=== PATIENT | female | born 1965 | race Caucasian/White ===

== ENCOUNTER 2023-09-09 14:27 | Emergency (ER) | payer OTHER, SELFPAY ==
[2023-09-09] VITALS (19 sets, daily range): BP systolic 96–212; BP diastolic 51–99; PULSE 44–77; RESP 14–24; TEMP 36.5; O2SAT 97–100; BMI 33.4
--- NOTE | 2023-09-09 14:36 | DI.RAD.S_ITS ---
PROCEDURE: XR CHEST 1V INDICATIONS: chest pain TECHNIQUE: One view of the chest was acquired. COMPARISON: None. FINDINGS: Surgical changes and devices: None. Lungs and pleura: Lungs are clear. No pleural effusions or pneumothorax. Mediastinum: Mediastinal contours appear normal. Heart size is normal. Bones and chest wall: No suspicious bony lesions. Overlying soft tissues appear unremarkable. IMPRESSION: No acute cardiopulmonary abnormality is seen. Dictated by: Misty Dennis M.D. on 09/09/2023 at 15:18 Approved by: Misty Dennis M.D. on 09/09/2023 at 15:19
--- NOTE | 2023-09-09 14:38 | ED_ITS ---
HPI - Chest Pain General Chief Complaint: Chest Pain Stated Complaint: V/N/D/ pain Lback/ center chest on fire T-1 Time Seen by Provider: 09/09/23 14:37 Source: patient Mode of arrival: Ambulatory Limitations: no limitations History of Present Illness HPI narrative: 58-year-old female with PMH HTN presents for midepigastric abdominal/lower chest pain with nausea and vomiting. Ate what seemed to be a very rare hamburger earlier today prior to symptom onset. Also reporting lower lumbar back pain at the top of her buttocks. Symptoms ongoing for 1 day. No medications taken prior to arrival. Related Data Previous Rx's Medication Instructions Recorded dicyclomine 20 mg tablet 20 mg PO TID PRN abdominal pain 09/09/23 #30 tabs naproxen 375 mg tablet 375 mg PO BID PRN pain #30 tabs 09/09/23 ondansetron 4 mg disintegrating 4 mg PO Q8H PRN nausea and 09/09/23 tablet vomiting #30 tabs Allergies Allergy/AdvReac Type Severity Reaction Status Date / Time Azithromycin Allergy Unknown Uncoded 10/03/17 11:52 Review of Systems Review of Systems Narrative: Negative except as noted above Patient History Social History Smoking Status: Never smoker Smoking Status: Never smoker Substance Use Type: does not use Exam Initial Vital Signs Initial Vital Signs: Vital Signs Temperature 97.7 F 09/09/23 14:29 Pulse Rate 50 L 09/09/23 14:29 Respiratory Rate 16 09/09/23 14:29 Blood Pressure 212/99 H 09/09/23 14:29 Pulse Oximetry 98 09/09/23 14:29 Oxygen Delivery Method Room Air 09/09/23 14:29 Const: Awake, alert, no acute distress, nontoxic appearing Cardiac: regular rate, regular rhythm RESP: unlabored, clear bilaterally, no wheezing GI: Soft, midepigastric tenderness to deep palpation MSK back: Bilateral lower lumbar tenderness to palpation over buttocks and lower hips, no midline tenderness Skin: Warm, Dry, intact, no rashes Neuro: AO x3, CN II-XII grossly intact, moves all extremities Course Orders Ordered: Discontinued Medications Al Hydrox/Mg Hydrox/Simethicone (Mag Hydrox/Alum/Simeth 30 Ml Udc) 30 ml PO NOW ONE Stop: 09/09/23 14:54 Last Admin: 09/09/23 15:10 Dose: 30 ml Documented By: ALEX Aspirin (Aspirin 81 Mg Chew Tab) 324 mg PO NOW ONE Stop: 09/09/23 14:37 Last Admin: 09/09/23 15:07 Dose: 324 mg Documented By: ALEX Hydralazine HCl (Hydralazine 20 Mg/Ml Vial) 20 mg IV NOW ONE Stop: 09/09/23 14:40 Last Admin: 09/09/23 15:13 Dose: 20 mg Documented By: ALEX Sodium Chloride (Normal Saline 0.9%) 1,000 mls @ 1,000 mls/hr IV BOLUS ONE Stop: 09/09/23 15:44 Last Infusion: 09/09/23 16:44 Dose: Infused Documented By: Admin: 09/09/23 15:11 Dose: 1,000 mls/hr Documented By: ALEX Acetaminophen (Ofirmev) 1,000 mg in 100 mls @ 400 mls/hr IV NOW ONE Stop: 09/09/23 16:49 Last Infusion: 09/09/23 17:34 Dose: Infused Documented By: Admin: 09/09/23 16:46 Dose: 400 mls/hr Documented By: ALEX Ketorolac Tromethamine (Ketorolac 30 Mg/Ml Vial) 15 mg IV NOW ONE Stop: 09/09/23 16:36 Last Admin: 09/09/23 16:45 Dose: 15 mg Documented By: ALEX Lidocaine HCl (Lidocaine Viscous 2% 15 Ml Solution) 15 ml PO NOW ONE Stop: 09/09/23 14:54 Last Admin: 09/09/23 15:10 Dose: 15 ml Documented By: ALEX Ondansetron HCl (Ondansetron 4 Mg/2 Ml Inj) 4 mg IV NOW ONE Stop: 09/09/23 14:46 Last Admin: 09/09/23 15:11 Dose: 4 mg Documented By: ALEX Vital Signs Vital signs: Vital Signs - 8 hr 09/09/23 14:29 09/09/23 14:51 09/09/23 14:58 Temperature 97.7 F Pulse Rate 50 L 49 L Respiratory Rate 16 15 Blood Pressure 212/99 H 190/79 H Pulse Oximetry 98 100 Oxygen Delivery Method Room Air Room Air 09/09/23 14:58 09/09/23 15:00 09/09/23 15:01 Temperature Pulse Rate 44 L 44 L Respiratory Rate 24 17 Blood Pressure 197/87 H Pulse Oximetry 99 99 Oxygen Delivery Method Room Air Room Air 09/09/23 15:01 09/09/23 15:13 09/09/23 15:30 Temperature Pulse Rate 47 L 66 62 Respiratory Rate 14 23 Blood Pressure 197/87 H Pulse Oximetry 99 100 Oxygen Delivery Method Room Air 09/09/23 15:33 09/09/23 15:33 09/09/23 15:47 Temperature Pulse Rate 74 Respiratory Rate 18 Blood Pressure 96/51 L 171/79 H Pulse Oximetry 99 Oxygen Delivery Method Room Air 09/09/23 15:47 09/09/23 16:00 09/09/23 16:00 Temperature Pulse Rate 77 72 Respiratory Rate 22 20 Blood Pressure 172/80 H Pulse Oximetry 100 99 Oxygen Delivery Method Room Air Room Air 09/09/23 16:07 09/09/23 16:20 09/09/23 16:20 Temperature Pulse Rate 75 65 Respiratory Rate 16 Blood Pressure 172/80 H 193/84 H Pulse Oximetry 100 Oxygen Delivery Method Room Air 09/09/23 16:30 09/09/23 16:41 09/09/23 16:41 Temperature Pulse Rate 62 71 Respiratory Rate 19 15 Blood Pressure 209/83 H Pulse Oximetry 99 99 Oxygen Delivery Method Room Air 09/09/23 17:00 09/09/23 17:01 09/09/23 17:01 Temperature Pulse Rate 58 L 55 L Respiratory Rate 21 20 Blood Pressure 172/79 H Pulse Oximetry 97 97 Oxygen Delivery Method Room Air Room Air 09/09/23 17:20 09/09/23 17:20 Temperature Pulse Rate 68 Respiratory Rate 14 Blood Pressure 186/86 H Pulse Oximetry 98 Oxygen Delivery Method MDM - Chest Pain Differential Diagnosis Differential diagnosis: Likely fracture of rib, pneumothorax and stable angina Lab Data 09/09/23 14:50 09/09/23 14:50 Labs: Lab Results 09/09/23 Range/Units 14:50 WBC 11.5 H (4.5-11.0) X10^3/uL RBC 5.12 (4.0-5.2) X10^6/uL Hgb 15.5 (12.0-16.0) g/dL Hct 46.8 H (36-46) % MCV 91.3 (80-100) fL MCH 30.2 (26-34) PG MCHC 33.1 (30-36) % RDW 13.6 (11.6-14.8) % Plt Count 268 (150-400) X10^3/uL Neut % (Auto) 90.4 H (50-75) % Lymph % (Auto) 6.9 L (25-40) % [place] % (Auto) 2.1 L (3-14) % Eos % (Auto) 0.1 L (2-4) % Baso % (Auto) 0.5 (0-2) % Neut # (Auto) 56747 H (6592-9345) /uL Lymph # (Auto) 800 L (1673-7255) /uL [place] # (Auto) 200 (0-900) /uL Eos # (Auto) 0 (0-450) /uL Baso # (Auto) 100 (0-100) /uL PT 10.4 (9.4-12.5) SECONDS INR 0.9 (0.9-1.3) APTT 36 (25.1-36.5) SECONDS Sodium 140 (137-145) mmol/L Potassium 3.8 (3.4-5.1) mmol/L Chloride 113 H (98-107) mmol/L Carbon Dioxide 18 L (22-32) mmol/L BUN 16 (7-17) mg/dL Creatinine 1.20 H (0.52-1.04) mg/dL Estimated GFR 52 L (>60) mL/min BUN/Creatinine Ratio 13.3 (6-22) Glucose 163 H (70-100) mg/dL Calcium 9.3 (8.4-10.2) mg/dL Magnesium 2.0 (1.6-2.3) mg/dL Total Bilirubin 0.6 (0.2-1.3) mg/dL AST 23 (14-36) IU/L ALT 22 (<35) IU/L Alkaline Phosphatase 72 (38-126) U/L Total Creatine Kinase 53 (30-135) U/L Troponin I < 0.012 (0.01-0.034) ng/mL Total Protein 7.9 (6.3-8.2) g/dL Albumin 4.6 (3.5-5.0) g/dL Globulin 3.3 (1.7-4.1) g/dL Albumin/Globulin Ratio 1.4 (1.0-2.8) Lipase 116 (23-300) U/L MDM Narrative Medical decision making narrative: Well-appearing patient presenting with midepigastric pain with nausea and vomiting. Triage report states chest pain, patient reports to the upper abdomen at the base of the sternum as where her pain is the worst. Reporting associated lumbar back pain, however it is located lower lumbar and near the hips/buttocks. No midline tenderness. Laboratory work reviewed, trace leukocytosis, WBC count 11.5, which is expected given that patient has had nausea and vomiting. Creatinine 1.2 GFR 52, no previous for comparison. Troponin undetectable. Chest x-ray unremarkable. Pain and nausea symptoms controlled with Zofran and Toradol, subsequently able to tolerate p.o.. Patient advised to follow up with her primary care physician. ED return precautions discussed at bedside. Patient expressed understanding of the plan and is in agreement at this time. All questions answered at the time of discharge. Discharge Plan Departure Patient Disposition: Home Clinical Impression: Vomiting, Midepigastric pain, Lumbar back pain Instructions: DI for Low Back Pain, DI for Vomiting -- Adult Activity Restrictions/Additional Instructions: Take the prescribed medications as needed for pain and nausea. Please follow up with the primary care physician. Prescriptions: New ondansetron 4 mg tablet,disintegrating 4 mg PO Q8H PRN (Reason: nausea and vomiting) Qty: 30 0RF naproxen 375 mg tablet 375 mg PO BID PRN (Reason: pain) Qty: 30 0RF dicyclomine 20 mg tablet 20 mg PO TID PRN (Reason: abdominal pain) Qty: 30 0RF Referrals: Miscellaneous,Doctor, MD [Primary Care Provider] - Stand Alone Forms: Patient Portal/API, Work Release Note
[2023-09-09 15:00] LABS: Add Manual Diff / Slide Review NO; Basophils Absolute Auto 100 /uL (0-100); Basophils Percent Auto 0.5 % (0-2); Eosinophils Absolute Auto 0 /uL (0-450); Eosinophils Percent Auto 0.1 % (2-4); Hematocrit 46.8 % (36-46); Hemoglobin 15.5 g/dL (12.0-16.0); Lymphocytes Absolute Auto 800 /uL (1100-4500); Lymphocytes Percent Auto 6.9 % (25-40); Mean Corpuscular HGB Conc 33.1 % (30-36); Mean Corpuscular Hemoglobin 30.2 PG (26-34); Mean Corpuscular Volume 91.3 fL (80-100); Monocytes Absolute Auto 200 /uL (0-900); Monocytes Percent Auto 2.1 % (3-14); Neutrophils Absolute Auto 10400 /uL (1500-7000); Neutrophils Percent Auto 90.4 % (50-75); Platelet Count 268 X10^3/uL (150-400); Red Blood Cell Count 5.12 X10^6/uL (4.0-5.2); Red Cell Distribution Width 13.6 % (11.6-14.8); White Blood Cell Count 11.5 X10^3/uL (4.5-11.0)
[2023-09-09] MEDS: ASPIRIN 81 MG CHEW TAB 324 MG PO (15:07)
[2023-09-09 15:08] LABS: INR 0.9 (0.9-1.3); Prothrombin Time 10.4 SECONDS (9.4-12.5)
[2023-09-09 15:10] LABS: PTT Partial Thromboplastin Tim 36 SECONDS (25.1-36.5)
[2023-09-09] MEDS: LIDOCAINE VISCOUS 2% 15 ML SOLUTION PO (15:10)
[2023-09-09] MEDS: MAG HYDROX/ALUM/SIMETH 30 ML UDC PO (15:10)
[2023-09-09] MEDS: SODIUM CHLORIDE 0.9% 1,000 ML 1000 ML IV (15:11)
[2023-09-09] MEDS: ONDANSETRON 4 MG/2 ML INJ IV (15:11)
[2023-09-09 15:12] LABS: Alanine Aminotransferase 22 IU/L (<35); Albumin 4.6 g/dL (3.5-5.0); Albumin Globulin Ratio 1.4 (1.0-2.8); Alkaline Phosphatase 72 U/L (38-126); Aspartate Aminotransferase 23 IU/L (14-36); BUN Creatinine Ratio 13.3 (6-22); Bilirubin Total 0.6 mg/dL (0.2-1.3); Blood Urea Nitrogen 16 mg/dL (7-17); Calcium 9.3 mg/dL (8.4-10.2); Carbon Dioxide 18 mmol/L (22-32); Chloride 113 mmol/L (98-107); Creatine Kinase 53 U/L (30-135); Estimated Glomerular Filt Rate 52 mL/min (>60); Globulin 3.3 g/dL (1.7-4.1); Glucose 163 mg/dL (70-100); HEMOLYSIS < 15 (0-50); Lipase 116 U/L (23-300); Potassium 3.8 mmol/L (3.4-5.1); Sodium 140 mmol/L (137-145); Total Protein 7.9 g/dL (6.3-8.2)
[2023-09-09] MEDS: HYDRALAZINE 20 MG/ML VIAL IV (15:13)
[2023-09-09 15:23] LABS: Troponin I < 0.012 ng/mL (0.01-0.034)
--- NOTE | 2023-09-09 15:38 | PC.NURSE ---
Patient's resting heart rate per patient and patient's spouse is in the 40's. Dr. Beto doty.
--- NOTE | 2023-09-09 16:05 | PC.NURSE ---
Patient tolerated 60ml PO intake kimmie bony.
[2023-09-09] MEDS: KETOROLAC 30 MG/ML VIAL 15 MG IV (16:45)
[2023-09-09] MEDS: ACETAMINOPHEN IV 1,000 MG/100 ML VIAL 400 MG IV (16:46)
== END 2023-09-09 18:22 | disposition home or self-care (01) ==
PROVIDERS: Emergency Provider Emergency Medicine; Family Provider Emergency Medicine
DX: R10.13 Epigastric pain (principal); M54.50 Low back pain, unspecified; R11.2 Nausea with vomiting, unspecified
CPT/HCPCS: 36415; 71045; 80053; 82550; 83690; 83735; 84484; 85025; 85610; 85730; 93005; 96361; 96365; 96375; 99284; J0136; J0360; J1885; J2405

== ENCOUNTER 2023-10-02 10:56 | Emergency (ER) | payer OTHER, SELFPAY ==
[2023-10-02] VITALS (14 sets, daily range): BP systolic 147–195; BP diastolic 65–89; PULSE 77–99; RESP 17–18; TEMP 36.9; O2SAT 97–99; BMI 30.4
--- NOTE | 2023-10-02 12:22 | DI.CT.S_ITS ---
PROCEDURE: CT ABDOMEN PELVIS W CON INDICATIONS: epigastric and L flank pain TECHNIQUE: After the administration of intravenous contrast, axial sections acquired from the lung bases to the pubic symphysis. Coronal and sagittal reformats were performed. For radiation dose reduction, the following was used: automated exposure control, adjustment of mA and/or kV according to patient size. COMPARISON: None. FINDINGS: Image quality: Diagnostic. Lower Chest: No significant findings. ABDOMEN: Liver: No solid mass. Gallbladder: No radiopaque gallstones or wall thickening. Biliary ducts: No biliary dilation. Pancreas: No ductal dilation. Spleen: Size is within normal limits. Adrenal Glands: No adrenal nodules. Kidneys and Ureters: There is significant left hydronephrosis and hydroureter. 8 mm calcification, Hounsfield units 712 is present in the proximal left ureter. Punctate nonobstructing left renal calcification is present. 4 calcifications, nonobstructing are present in the right kidney the largest measuring 4 mm. Stomach and Bowel: Normal colonic caliber, without significant wall thickening. Appendix is normal. Colonic diverticular present without inflammatory change. Peritoneum: No abnormal intraperitoneal fluid. No free air. Ventral Wall: No significant ventral hernia. Abdominal Nodes: No retroperitoneal or mesenteric adenopathy by size criteria. Vessels: Aorta and inferior vena cava are normal in size. PELVIS: Pelvic Organs: Unremarkable. Bladder: No bladder wall thickening, accounting for underdistention. Pelvic Nodes: No enlarged lymph nodes. Miscellaneous: No inguinal hernias are seen. Bones: No aggressive osseous abnormality. IMPRESSION: Prominent left hydronephrosis and proximal hydroureter secondary to 8 mm proximal obstructing left ureteral calculus. Dictated by: Misty Dennis M.D. on 10/02/2023 at 13:39 Approved by: Misty Dennis M.D. on 10/02/2023 at 13:41
[2023-10-02 12:42] LABS: Add Manual Diff / Slide Review NO; Basophils Absolute Auto 0 /uL (0-100); Basophils Percent Auto 0.7 % (0-2); Eosinophils Absolute Auto 100 /uL (0-450); Eosinophils Percent Auto 0.8 % (2-4); Hematocrit 40.7 % (36-46); Hemoglobin 13.9 g/dL (12.0-16.0); Lymphocytes Absolute Auto 1800 /uL (1100-4500); Lymphocytes Percent Auto 24.4 % (25-40); Mean Corpuscular HGB Conc 34.2 % (30-36); Mean Corpuscular Hemoglobin 31.4 PG (26-34); Mean Corpuscular Volume 91.9 fL (80-100); Monocytes Absolute Auto 700 /uL (0-900); Monocytes Percent Auto 10.1 % (3-14); Neutrophils Absolute Auto 4700 /uL (1500-7000); Platelet Count 415 X10^3/uL (150-400); Red Blood Cell Count 4.43 X10^6/uL (4.0-5.2); Red Cell Distribution Width 13.3 % (11.6-14.8); White Blood Cell Count 7.4 X10^3/uL (4.5-11.0)
[2023-10-02 12:55] LABS: INR 1.1 (0.9-1.3)
[2023-10-02 12:57] LABS: PTT Partial Thromboplastin Tim 40 SECONDS (25.1-36.5)
[2023-10-02 12:59] LABS: Alanine Aminotransferase 15 IU/L (<35); Albumin 4.4 g/dL (3.5-5.0); Albumin Globulin Ratio 1.3 (1.0-2.8); Alkaline Phosphatase 74 U/L (38-126); Aspartate Aminotransferase 18 IU/L (14-36); BUN Creatinine Ratio 10.3 (6-22); Bilirubin Total 0.7 mg/dL (0.2-1.3); Blood Urea Nitrogen 21 mg/dL (7-17); Calcium 9.9 mg/dL (8.4-10.2); Carbon Dioxide 17 mmol/L (22-32); Chloride 108 mmol/L (98-107); Estimated Glomerular Filt Rate 28 mL/min (>60); Globulin 3.5 g/dL (1.7-4.1); Glucose 108 mg/dL (70-100); HEMOLYSIS < 15 (0-50); Lipase 232 U/L (23-300); Potassium 3.6 mmol/L (3.4-5.1); Sodium 139 mmol/L (137-145); Total Protein 7.9 g/dL (6.3-8.2)
[2023-10-02 14:00] LABS: Ictotest Urine Negative (Negative)
[2023-10-02 14:12] LABS: Bacteria Urine None Seen; RBC Urine 1-5/HPF (0-5/HPF); Squamous Epithelial Cell Urine None Seen (0-5/HPF); Urine Volume 10mL (spun); WBC Urine 1-5/HPF (0-5/HPF)
[2023-10-02] MEDS: SODIUM CHLORIDE 0.9% 1,000 ML 1000 ML IV (14:16)
--- NOTE | 2023-10-02 14:44 | ED_ITS ---
HPI - Recheck/Abnormal Lab/Rx <Noreen Morales PA-C - Last Filed: 10/02/23 19:14> General Chief Complaint: Recheck/Abnormal Lab/Rx Stated Complaint: sent by pcp, requesting CT Time Seen by Provider: 10/02/23 11:40 Source: patient Mode of arrival: Ambulatory History of Present Illness HPI narrative: 58-year-old female with past medical history intracranial hypertension, optic neuritis, breast cancer in remission, hypertension, hyperlipidemia presents to the ED with 3-4 weeks of epigastric pain, left-sided flank pain, intermittent nausea, vomiting. Patient endorses chills. Patient denies fever, chest pain, shortness of breath, diarrhea, dysuria, urinary urgency, urinary frequency, lightheadedness, dizziness, syncope. Patient was seen in the ED on September 14 for epigastric pain and some lumbar pain. Patient has been taking Prilosec for GERD. Patient comes to the ED today due to continued and worsening symptoms. Patient endorses some nausea and vomiting this morning, chills, left-sided flank pain. Patient was seen at the primary care office and labs were drawn which shows a declining kidney function, which prompted them to send her to the ED today for further evaluation and scans. Patient states that she does suspects she might have kidney stones but denies any prior history of urolithiasis. Related Data Previous Rx's Medication Instructions Recorded dicyclomine 20 mg tablet 20 mg PO TID PRN abdominal pain 09/09/23 #30 tabs naproxen 375 mg tablet 375 mg PO BID PRN pain #30 tabs 09/09/23 ondansetron 4 mg disintegrating 4 mg PO Q8H PRN nausea and 09/09/23 tablet vomiting #30 tabs Allergies Allergy/AdvReac Type Severity Reaction Status Date / Time azithromycin Allergy Unknown Verified 10/02/23 20:54 Review of Systems <Noreen Morales PA-C - Last Filed: 10/02/23 19:14> Constitutional Constitutional: Reports chills, Denies fatigue, Denies fever(s), Denies frequent falls, Denies lethargy and Denies weakness Eyes Eyes: Denies change in vision, Denies eye discharge, Denies irritation and Denies loss of vision ENT Ears, Nose, Mouth, and Throat: Denies change in voice, Denies dizziness, Denies neck pain, Denies sore throat and Denies throat swelling Cardiovascular Cardiovascular: Denies chest pain, Denies irregular heart rhythm, Denies lightheadedness, Denies palpitations, Denies dyspnea, Denies dyspnea on exertion and Denies orthopnea Respiratory Respiratory: Denies cough, Denies dyspnea, Denies dyspnea on exertion and Denies wheezing Gastrointestinal Gastrointestinal: Reports abdominal pain, Denies change in bowel habits, Reports constipation, Denies diarrhea, Reports nausea and Reports vomiting Genitourinary Comments: L flank pain Musculoskeletal Musculoskeletal: Denies neck pain and Denies numbness Integumentary/Breasts Skin/Breast: Denies pruritus, Denies erythema, Denies rash and Denies wounds Neurologic Neurologic: Denies behavioral changes, Denies confusion, Denies dizziness, Denies frequent falls, Denies loss of vision, Denies numbness and Denies weakness Psychiatric Psychiatric: Denies anxiety, Denies behavioral changes, Denies confusion, Denies depression, Denies homicidal ideation and Denies suicidal ideation Endocrine Endocrine: Denies fatigue, Denies flushing and Denies palpitations Hematologic/Lymphatic Hematologic/Lymphatic: Denies easy bruising Allergic/Immunologic Allergic/Immunologic: Denies urticaria, Denies throat swelling and Denies wheezing Patient History <Noreen Morales PA-C - Last Filed: 10/02/23 19:14> Social History Smoking Status: Never smoker Smoking Status: Never smoker alcohol intake frequency: holidays/special occasions only Substance Use Type: does not use Exam <Noreen Morales PA-C - Last Filed: 10/02/23 19:14> Narrative Exam Narrative: Const General:?cooperative, healthy appearing and comfortable [facility] Head:?normal to inspection Ears:?hearing grossly normal bilaterally Nose:?external nose normal Face and sinus:?normal facial exam and sinuses nontender Mouth:?oral mucosae normal Throat:?posterior oropharynx normal Eyes General:?appearance normal, both eyes and all related structures Neck Neck:?normal visual inspection and no lymphadenopathy noted Resp Effort & Inspection:?normal respiratory effort Auscultation:?clear to auscultation bilaterally Cardio Rate:?regular rate Rhythm:?regular rhythm GI Abdomen is soft, nontender, nondistended. There is some left-sided CVA tenderness. Neuro General:?patient alert, patient awake and patient oriented x3 Initial Vital Signs Initial Vital Signs: Vital Signs Temperature 98.4 F 10/02/23 11:15 Pulse Rate 89 10/02/23 11:15 Respiratory Rate 18 10/02/23 11:15 Blood Pressure 180/85 H 10/02/23 11:15 Pulse Oximetry 99 10/02/23 11:15 Oxygen Delivery Method Room Air 10/02/23 11:15 <Ramon Francisco MD - Last Filed: 10/09/23 09:25> Initial Vital Signs Initial Vital Signs: Vital Signs Temperature 98.4 F 10/02/23 11:15 Pulse Rate 89 10/02/23 11:15 Respiratory Rate 18 10/02/23 11:15 Blood Pressure 180/85 H 10/02/23 11:15 Pulse Oximetry 99 10/02/23 11:15 Oxygen Delivery Method Room Air 10/02/23 11:15 Course <Noreen Morales PA-C - Last Filed: 10/02/23 19:14> Orders Ordered: Discontinued Medications Famotidine (Famotidine 20 Mg/2 Ml Vial) 40 mg IV NOW RADHA Last Admin: 10/02/23 19:28 Dose: 40 mg Documented By: YESSY Sodium Chloride (Normal Saline 0.9%) 1,000 mls @ 1,000 mls/hr IV BOLUS ONE Stop: 10/02/23 15:06 Last Infusion: 10/02/23 15:15 Dose: Infused Documented By: Admin: 10/02/23 14:16 Dose: 1,000 mls/hr Documented By: SONNY Ondansetron HCl (Ondansetron 4 Mg Odt) 4 mg SL NOW PRN PRN Reason: Nausea And Vomiting Ondansetron HCl (Ondansetron 4 Mg/2 Ml Inj) 4 mg IV NOW PRN PRN Reason: Nausea And Vomiting Vital Signs Vital signs: Vital Signs - 8 hr 10/02/23 11:15 10/02/23 15:54 10/02/23 15:54 Temperature 98.4 F Pulse Rate 89 99 H Respiratory Rate 18 Blood Pressure 180/85 H 195/88 H Pulse Oximetry 99 97 Oxygen Delivery Method Room Air 10/02/23 16:00 10/02/23 16:00 10/02/23 16:30 Temperature Pulse Rate 86 84 Respiratory Rate Blood Pressure 188/88 H Pulse Oximetry 99 98 Oxygen Delivery Method 10/02/23 16:30 10/02/23 17:00 10/02/23 17:00 Temperature Pulse Rate 79 Respiratory Rate Blood Pressure 169/89 H 156/71 H Pulse Oximetry 99 Oxygen Delivery Method 10/02/23 17:30 10/02/23 17:31 10/02/23 17:31 Temperature Pulse Rate 77 79 Respiratory Rate Blood Pressure 147/65 H Pulse Oximetry 99 99 Oxygen Delivery Method 10/02/23 18:00 10/02/23 18:00 10/02/23 18:30 Temperature Pulse Rate 82 77 Respiratory Rate Blood Pressure 175/77 H Pulse Oximetry 99 99 Oxygen Delivery Method 10/02/23 18:30 10/02/23 18:46 Temperature 98.4 F Pulse Rate Respiratory Rate 17 Blood Pressure 175/77 H Pulse Oximetry Oxygen Delivery Method <Ramon Francisco MD - Last Filed: 10/09/23 09:25> Orders Ordered: Discontinued Medications Famotidine (Famotidine 20 Mg/2 Ml Vial) 40 mg IV NOW RADHA Last Admin: 10/02/23 19:28 Dose: 40 mg Documented By: YESSY Sodium Chloride (Normal Saline 0.9%) 1,000 mls @ 1,000 mls/hr IV BOLUS ONE Stop: 10/02/23 15:06 Last Infusion: 10/02/23 15:15 Dose: Infused Documented By: Admin: 10/02/23 14:16 Dose: 1,000 mls/hr Documented By: SONNY Ondansetron HCl (Ondansetron 4 Mg Odt) 4 mg SL NOW PRN PRN Reason: Nausea And Vomiting Ondansetron HCl (Ondansetron 4 Mg/2 Ml Inj) 4 mg IV NOW PRN PRN Reason: Nausea And Vomiting Vital Signs Vital signs: Vital Signs - 8 hr 10/02/23 11:15 10/02/23 15:54 10/02/23 15:54 Temperature 98.4 F Pulse Rate 89 99 H Respiratory Rate 18 Blood Pressure 180/85 H 195/88 H Pulse Oximetry 99 97 Oxygen Delivery Method Room Air 10/02/23 16:00 10/02/23 16:00 10/02/23 16:30 Temperature Pulse Rate 86 84 Respiratory Rate Blood Pressure 188/88 H Pulse Oximetry 99 98 Oxygen Delivery Method 10/02/23 16:30 10/02/23 17:00 10/02/23 17:00 Temperature Pulse Rate 79 Respiratory Rate Blood Pressure 169/89 H 156/71 H Pulse Oximetry 99 Oxygen Delivery Method 10/02/23 17:30 10/02/23 17:31 10/02/23 17:31 Temperature Pulse Rate 77 79 Respiratory Rate Blood Pressure 147/65 H Pulse Oximetry 99 99 Oxygen Delivery Method 10/02/23 18:00 10/02/23 18:00 10/02/23 18:30 Temperature Pulse Rate 82 77 Respiratory Rate Blood Pressure 175/77 H Pulse Oximetry 99 99 Oxygen Delivery Method 10/02/23 18:30 10/02/23 18:46 Temperature 98.4 F Pulse Rate Respiratory Rate 17 Blood Pressure 175/77 H Pulse Oximetry Oxygen Delivery Method MDM - Recheck/Abnormal Lab/Rx <Noreen Morales PA-C - Last Filed: 10/02/23 19:14> Lab Data 10/02/23 12:34 10/02/23 12:34 Labs: Lab Results 10/02/23 10/02/23 Range/Units 12:34 13:40 WBC 7.4 (4.5-11.0) X10^3/uL RBC 4.43 (4.0-5.2) X10^6/uL Hgb 13.9 (12.0-16.0) g/dL Hct 40.7 (36-46) % MCV 91.9 (80-100) fL MCH 31.4 (26-34) PG MCHC 34.2 (30-36) % RDW 13.3 (11.6-14.8) % Plt Count 415 H (150-400) X10^3/uL Neut % (Auto) 64.0 (50-75) % Lymph % (Auto) 24.4 L (25-40) % [place] % (Auto) 10.1 (3-14) % Eos % (Auto) 0.8 L (2-4) % Baso % (Auto) 0.7 (0-2) % Neut # (Auto) 4700 (0737-3097) /uL Lymph # (Auto) 1800 (5004-8351) /uL [place] # (Auto) 700 (0-900) /uL Eos # (Auto) 100 (0-450) /uL Baso # (Auto) 0 (0-100) /uL PT 13.0 H (9.4-12.5) SECONDS INR 1.1 (0.9-1.3) APTT 40 H (25.1-36.5) SECONDS Sodium 139 (137-145) mmol/L Potassium 3.6 (3.4-5.1) mmol/L Chloride 108 H (98-107) mmol/L Carbon Dioxide 17 L (22-32) mmol/L BUN 21 H (7-17) mg/dL Creatinine 2.04 H (0.52-1.04) mg/dL Estimated GFR 28 L (>60) mL/min BUN/Creatinine Ratio 10.3 (6-22) Glucose 108 H (70-100) mg/dL Calcium 9.9 (8.4-10.2) mg/dL Total Bilirubin 0.7 (0.2-1.3) mg/dL AST 18 (14-36) IU/L ALT 15 (<35) IU/L Alkaline Phosphatase 74 (38-126) U/L Total Protein 7.9 (6.3-8.2) g/dL Albumin 4.4 (3.5-5.0) g/dL Globulin 3.5 (1.7-4.1) g/dL Albumin/Globulin Ratio 1.3 (1.0-2.8) Lipase 232 (23-300) U/L Ur Bilirubin Confirm Negative (Negative) Urine RBC 1-5/hpf (0-5/HPF) Urine WBC 1-5/hpf (0-5/HPF) Ur Squamous Epith Cells None seen (0-5/HPF) Urine Bacteria None seen (None) Vol Urine Centrifuged 10ml (spun) Urine Dip Bedside Urine Glucose Negative Bedside Urine Bilirubin + 1 Bedside Urine Ketone +/- 5 Urine Specific [place] 1.025 Bedside Urine Occult Blood +/- Bedside Urine pH 5.5 Bedside Urine Protein +/- 15 Bedside Urine Urobilinogen - Negative Bedside Urine Nitrite - Negative Bedside Urine Leukocytes - Negative Esterase MDM Narrative Medical decision making narrative: 58-year-old female with past medical history intracranial hypertension, optic neuritis, breast cancer in remission, hypertension, hyperlipidemia presents to the ED with 3-4 weeks of epigastric pain, left-sided flank pain, intermittent nausea, vomiting. Concern for GERD versus pancreatitis versus gastritis versus urolithiasis versus UTI versus musculoskeletal sprain/strain versus other intra- abdominal pathology versus other. Will obtain labs, UA, CT abdomen pelvis. Creatinine elevated to 2.04, GFR is 28. This is a significant decline from 09/09/2023 when the creatinine was 1.2 and GFR was 52. Will give patient IV fluids. Labs otherwise normal. CT abdomen pelvis shows prominent left hydronephrosis and proximal hydroureter secondary to a 8 mm proximal obstructing left ureteral calculus. UA positive for hematuria, negative for UTI. Given the 8 mm obstructing stone, declining kidney function, consulted with Urology on-call Dr. Perez. He recommends urological intervention such as a stent as soon as possible. Also recommends IV hydration. Transfer has been initiated to transfer patient to a facility where she can get the urological intervention. Patient continues to be stable. Pain and nausea are controlled. Patient has been accepted at [facility] in [place]. Report given to Dr. Apollo Anne from Urology. Report also given to Dr. Lauren Hale, the hospitalist who is the accepting physician. Taylor arvizu will communicate to us when the bed is available for patient transfer. Plan has been communicated to patient, she verbalizes understanding. Patient continues to be stable and pain and nausea free. ETA for BLS transfer 7:40pm. <Ramon Francisco MD - Last Filed: 10/09/23 09:25> Lab Data Labs: Lab Results 10/02/23 10/02/23 Range/Units 12:34 13:40 WBC 7.4 (4.5-11.0) X10^3/uL RBC 4.43 (4.0-5.2) X10^6/uL Hgb 13.9 (12.0-16.0) g/dL Hct 40.7 (36-46) % MCV 91.9 (80-100) fL MCH 31.4 (26-34) PG MCHC 34.2 (30-36) % RDW 13.3 (11.6-14.8) % Plt Count 415 H (150-400) X10^3/uL Neut % (Auto) 64.0 (50-75) % Lymph % (Auto) 24.4 L (25-40) % [place] % (Auto) 10.1 (3-14) % Eos % (Auto) 0.8 L (2-4) % Baso % (Auto) 0.7 (0-2) % Neut # (Auto) 4700 (6478-6210) /uL Lymph # (Auto) 1800 (5340-5822) /uL [place] # (Auto) 700 (0-900) /uL Eos # (Auto) 100 (0-450) /uL Baso # (Auto) 0 (0-100) /uL PT 13.0 H (9.4-12.5) SECONDS INR 1.1 (0.9-1.3) APTT 40 H (25.1-36.5) SECONDS Sodium 139 (137-145) mmol/L Potassium 3.6 (3.4-5.1) mmol/L Chloride 108 H (98-107) mmol/L Carbon Dioxide 17 L (22-32) mmol/L BUN 21 H (7-17) mg/dL Creatinine 2.04 H (0.52-1.04) mg/dL Estimated GFR 28 L (>60) mL/min BUN/Creatinine Ratio 10.3 (6-22) Glucose 108 H (70-100) mg/dL Calcium 9.9 (8.4-10.2) mg/dL Total Bilirubin 0.7 (0.2-1.3) mg/dL AST 18 (14-36) IU/L ALT 15 (<35) IU/L Alkaline Phosphatase 74 (38-126) U/L Total Protein 7.9 (6.3-8.2) g/dL Albumin 4.4 (3.5-5.0) g/dL Globulin 3.5 (1.7-4.1) g/dL Albumin/Globulin Ratio 1.3 (1.0-2.8) Lipase 232 (23-300) U/L Ur Bilirubin Confirm Negative (Negative) Urine RBC 1-5/hpf (0-5/HPF) Urine WBC 1-5/hpf (0-5/HPF) Ur Squamous Epith Cells None seen (0-5/HPF) Urine Bacteria None seen (None) Vol Urine Centrifuged 10ml (spun) Urine Dip Bedside Urine Glucose Negative Bedside Urine Bilirubin + 1 Bedside Urine Ketone +/- 5 Urine Specific [place] 1.025 Bedside Urine Occult Blood +/- Bedside Urine pH 5.5 Bedside Urine Protein +/- 15 Bedside Urine Urobilinogen - Negative Bedside Urine Nitrite - Negative Bedside Urine Leukocytes - Negative Esterase Discharge Plan Departure Patient Disposition: [facility] Clinical Impression: Urinary tract obstruction by kidney stone Prescriptions: No Action ondansetron 4 mg tablet,disintegrating 4 mg PO Q8H PRN (Reason: nausea and vomiting) Qty: 30 0RF naproxen 375 mg tablet 375 mg PO BID PRN (Reason: pain) Qty: 30 0RF dicyclomine 20 mg tablet 20 mg PO TID PRN (Reason: abdominal pain) Qty: 30 0RF Referrals: Miscellaneous,DoctorMD [Primary Care Provider] - ED Sign-out <Ramon Francisco MD - Last Filed: 10/09/23 09:25> Cosign ED Attending Cosignature Attestation: I was immediately available in the department for consultation. ?This documentation has been reviewed and I agree with assessment and plan. Supervised by Ramon Francisco MD
--- NOTE | 2023-10-02 16:09 | PC.NURSE ---
Pt reports pain is minimal and does not wish for pain medicine.
[2023-10-02] MEDS: FAMOTIDINE 20 MG/2 ML VIAL 40 MG IV (19:28)
== END 2023-10-02 20:03 | disposition short-term general hospital (02) ==
PROVIDERS: Emergency Provider Student in an Organized Health Care Education/Training Program; Family Provider Emergency Medicine
DX: N20.0 Calculus of kidney (principal); R11.2 Nausea with vomiting, unspecified
CPT/HCPCS: 36415; 74177; 80053; 81003; 81015; 83690; 85025; 85610; 85730; 96361; 96374; 99284; Q9967